=== PATIENT | male | born 1970 | race Two or more races ===

== ENCOUNTER 2019-11-09 21:57 | Emergency (ER) | payer OTHER ==
[~2019-11-09] VITALS: Ht 162.6 cm; Wt 86.2 kg
[2019-11-09 23:20] VITALS: BP 144/101
[2019-11-09 23:30] LABS: Basophils # (auto) 0 10 ^3/uL (0-0.2); Basophils % (auto) 0.6 % (0.0-2.0); Eosinophils # (auto) 0.2 10 ^3/uL (0-0.8); Eosinophils % (auto) 4.8 % (0.0-7.0); Mean Corpuscular Hemoglobin 28.3 pg (28.0-32.0); Mean Corpuscular Hgb Conc. 33.3 g/dL (32.0-36.0); Mean Corpuscular Volume 84.8 fL (80.0-100.0); Monocytes # (auto) 0.8 10 ^3/uL (0-1.3); Monocytes % (auto) 16.6 % (0.0-12.0); Neutrophils # (auto) 2.6 10 ^3/uL (1.6-8.6); Nucleated Red Blood Cells % 0.1 %; Platelet Count (auto) 205 10^3/uL (140-450); Red Blood Cells 5.31 10^6/uL (4.5-5.90); Red Cell Distribution Width 14.6 % (11.8-14.3); White Blood Cell 4.7 10^3/uL (4.4-10.8)
[2019-11-09 23:46] LABS: Alanine Aminotransferase 46 U/L (16-61); Albumin 3.7 g/dL (3.4-5.0); Anion Gap 6 (5-15); Aspartate Aminotransferase 26 U/L (15-37); BUN/Creatinine Ratio 18.4; Blood Urea Nitrogen 16 mg/dL (7-18); Calcium 7.5 mg/dL (8.5-10.1); Carbon Dioxide 22 mmol/L (21-32); Chloride 110 mmol/L (98-107); GFR African American 119 mL/min; GFR Non-African American 99 mL/min; Glucose 100 mg/dL (74-106); Magnesium 2.2 mg/dL (1.6-2.6); Potassium 3.7 mmol/L (3.5-5.1); Sodium 138 mmol/L (136-145)
[2019-11-09 23:51] LABS: Alkaline Phosphatase 66 U/L (45-117); Bilirubin, Total 0.2 mg/dL (0.2-1.0); Total Protein 7.8 g/dL (6.4-8.2)
== END 2019-11-10 01:11 | disposition home or self-care (01) ==
LOC: ER 21:57
DX: U07.1 COVID-19 (principal); B34.9 Viral infection, unspecified
CPT/HCPCS: 36415; 71045; 80053; 82728; 83605; 83735; 84484; 85025; 85379; 87040; 87070; 87804; 87880; 93005; 99285; C9803; U0003

== ENCOUNTER → 2019-11-13 | Emergency (ER) | payer OTHER ==
[~2019-11-13] VITALS: Ht 165.1 cm; Wt 86.2 kg
[~2019-11-13] MED LIST: ACETAMINOPHEN 500 MG TAB PO ONE
[2019-11-14 03:43] LABS: Basophils # (auto) 0 10 ^3/uL (0-0.2); Basophils % (auto) 0.4 % (0.0-2.0); Eosinophils # (auto) 0.1 10 ^3/uL (0-0.8); Eosinophils % (auto) 1.5 % (0.0-7.0); Hematocrit 46.6 % (41.0-53.0); Hemoglobin 16.1 g/dL (13.5-17.5); Lymphocytes % (auto) 14.7 % (10.0-50.0); Mean Corpuscular Hemoglobin 29.2 pg (28.0-32.0); Mean Corpuscular Hgb Conc. 34.6 g/dL (32.0-36.0); Mean Corpuscular Volume 84.6 fL (80.0-100.0); Monocytes # (auto) 0.8 10 ^3/uL (0-1.3); Monocytes % (auto) 11.5 % (0.0-12.0); Neutrophils % (auto) 71.9 % (37.0-80.0); Platelet Count (auto) 192 10^3/uL (140-450); Red Blood Cells 5.51 10^6/uL (4.5-5.90); Red Cell Distribution Width 14.5 % (11.8-14.3); White Blood Cell 6.9 10^3/uL (4.4-10.8)
[2019-11-14 04:04] LABS: Albumin 3.5 g/dL (3.4-5.0); Calcium 8.5 mg/dL (8.5-10.1); Potassium 4.6 mmol/L (3.5-5.1)
[2019-11-14 04:06] LABS: BUN/Creatinine Ratio 13.3
[2019-11-14 04:08] LABS: Bilirubin, Total 0.3 mg/dL (0.2-1.0); Total Protein 8.5 g/dL (6.4-8.2)
[2019-11-14 07:06] VITALS: BP 176/111
== END | disposition home or self-care (01) ==
LOC: ER 22:21
DX: J01.00 Acute maxillary sinusitis, unspecified (principal); Z20.828 Contact with and (suspected) exposure to other viral communicable diseases
CPT/HCPCS: 36415; 80053; 82728; 85025

== ENCOUNTER 2019-11-16 11:38 | Inpatient (IN) | payer OTHER ==
[~2019-11-16] VITALS: Ht 165.1 cm; Wt 98.2 kg
[2019-11-16] MEDS ORDERED: ACETAMINOPHEN 325 MG TAB PO ONE (12:15)
[2019-11-16] MEDS ORDERED: AZITHROMYCIN 500MG/ 250ML 250 ML IV ONE (13:15)
[2019-11-16] MEDS ORDERED: ENOXAPARIN SOD 100 MG/1 ML SYRINGE SC ONE (13:15)
[2019-11-16] MEDS ORDERED: PANTOPRAZOLE 40 MG/10 ML VIAL INJ IV ONE (13:15)
[2019-11-16] MEDS ORDERED: ZINC SULFATE 220mg CAP or TAB PO ONE (13:15)
[2019-11-16] MEDS ORDERED: DexAMETHasone SOD PHOS 4 MG/1ML SDV INJ IV ONE (13:15)
[2019-11-16] MEDS ORDERED: ASCORBIC ACID 500 MG TAB PO ONE (13:15)
[2019-11-16] MEDS ORDERED: SODIUM CHLORIDE 0.9% 1,000 ML IV SCH (14:03)
[2019-11-16] MEDS ORDERED: ONDANSETRON HCL 4 MG/2 ML VIAL IV PRN (14:15)
[2019-11-16] MEDS ORDERED: ALUM & MAG HYDROX-SIMETH LIQ(MAALOX) 30 ML PO PRN (14:15)
[2019-11-16] MEDS ORDERED: ACETAMINOPHEN 500 MG TAB PO PRN (14:15)
[2019-11-16] MEDS ORDERED: NITROGLYCERIN 0.4 MG SL TAB SL PRN (14:15)
[2019-11-16] MEDS ORDERED: LORazepam 0.5 MG TAB PO PRN (14:15)
[2019-11-16] MEDS ORDERED: MORPHINE SULF INJ 2 MG/ML SYRINGE 1ML IV PRN ×2 (14:15)
[2019-11-16] MEDS ORDERED: DOCUSATE SOD 100 MG CAP PO PRN (14:15)
[2019-11-16] MEDS ORDERED: HYDROcodone-ACET 5/325MG TAB PO PRN (14:15)
[2019-11-16] MEDS ORDERED: DexAMETHasone 4 MG TAB PO ONE (14:30)
[2019-11-16] MEDS ORDERED: FUROSEMIDE 20 MG/2 ML VIAL IV ONE (14:30)
[2019-11-16 14:52] LABS: Basophils # (auto) 0 10 ^3/uL (0-0.2); Basophils % (auto) 0.3 % (0.0-2.0); Eosinophils # (auto) 0 10 ^3/uL (0-0.8); Eosinophils % (auto) 0.4 % (0.0-7.0); Hematocrit 44.4 % (41.0-53.0); Hemoglobin 14.9 g/dL (13.5-17.5); Lymphocytes # (auto) 0.9 10 ^3/uL (0.4-5.4); Lymphocytes % (auto) 12.9 % (10.0-50.0); Mean Corpuscular Hemoglobin 28.1 pg (28.0-32.0); Mean Corpuscular Hgb Conc. 33.5 g/dL (32.0-36.0); Mean Corpuscular Volume 83.8 fL (80.0-100.0); Monocytes # (auto) 0.7 10 ^3/uL (0-1.3); Neutrophils # (auto) 5.2 10 ^3/uL (1.6-8.6); Neutrophils % (auto) 76.4 % (37.0-80.0); Nucleated Red Blood Cells % 0.1 %; Platelet Count (auto) 216 10^3/uL (140-450); Red Cell Distribution Width 14.8 % (11.8-14.3); White Blood Cell 6.8 10^3/uL (4.4-10.8)
[2019-11-16 15:04] LABS: Albumin 3.2 g/dL (3.4-5.0); Anion Gap 7 (5-15); Blood Urea Nitrogen 9 mg/dL (7-18); Calcium 7.8 mg/dL (8.5-10.1); Carbon Dioxide 22 mmol/L (21-32); Chloride 104 mmol/L (98-107); Glucose 86 mg/dL (74-106); Potassium 4.3 mmol/L (3.5-5.1); Sodium 133 mmol/L (136-145)
[2019-11-16 15:12] LABS: Alanine Aminotransferase 36 U/L (16-61); Alkaline Phosphatase 68 U/L (45-117); Aspartate Aminotransferase 23 U/L (15-37); BUN/Creatinine Ratio 9.9; Bilirubin, Total 0.5 mg/dL (0.2-1.0); CRP High Sensitivity 5.88 mg/dL (< 0.3); GFR African American 113 mL/min; GFR Non-African American 94 mL/min; Lactate Dehydrogenase 245 U/L (87-241); Total Protein 7.9 g/dL (6.4-8.2)
[2019-11-16 18:10] VITALS: BP 131/83
--- NOTE | 2019-11-16 18:10 | NUR ---
Telemetry admit from ER BERNDEN GONSALES admitted to Telemetry unit after SBAR received. Patient oriented to ACE COBB RN primary RN, unit, room, bed, and unit policies regarding patient care and visiting hours. Patient now on continuous telemetry monitoring, tele box # 20 and telemetry reading on arrival to unit is ST. Patient placed on bedside oxygen, weighed by bedscale and encouraged to call if they need something. All questions and concerns addressed, patient verbalized understanding.
[2019-11-16] MEDS: FUROSEMIDE 20 MG/2 ML VIAL IV SCH (19:07)
--- NOTE | 2019-11-16 19:33 | NUR ---
ENDORSED CARE TO NIGHT RAJIV ESTRADA. PATIENT RESTING IN BED, NO DISTRESS, SOB, OR PAIN NOTED AT THIS TIME.
--- NOTE | 2019-11-16 19:35 | NUR ---
OPENING NOTE Received report from day shift RN. Patient is A&O X's 4 with no s/s of distress and reports no pain and no SOB at this time. Educated patient on POC and to use call light when in need of any assistance. Patient verbalized understanding. Bed is in lowest/locked position with side rails up X's 2 and call light is within reach of patient. Will continue care.
[2019-11-16 20:00] VITALS: BP 126/73
[2019-11-16 21:11] LABS: Cholesterol 131 mg/dL (< 200)
[2019-11-16 21:14] LABS: HDL Cholesterol 27 mg/dL (40-59); LDL Cholesterol 101 mg/dL (< 100); Triglycerides 77 mg/dL (< 150)
[2019-11-16] MEDS: DexAMETHasone 4 MG TAB PO SCH (21:40)
[2019-11-16] MEDS: ENOXAPARIN SOD 100 MG/1 ML SYRINGE SC SCH (21:41)
[2019-11-16] MEDS: DOXYCYCLINE 100 MG TAB/CAP PO SCH (21:41)
[2019-11-16] MEDS: ALBUTEROL SULF HFA 90MCG INH 200DOSE IN SCH (21:52)
--- NOTE | 2019-11-16 23:18 | NUR ---
UA sent to lab.
[2019-11-16 23:21] LABS: Urine WBC None Seen /hpf (0 - 3)
[2019-11-16 23:27] LABS: Urine Bacteria NONE SEEN /hpf (None Seen); Urine Blood Negative /uL (Negative); Urine Mucus FEW (None Seen); Urine Specific Gravity 1.007 (1.001-1.035)
[2019-11-16 23:44] LABS: Alcohol, Urine < 3.0 mg/dL (0-10); Amphetamine Screen, Urine NEGATIVE (NEGATIVE); Barbiturate Scree,Urine NEGATIVE (NEGATIVE); Benzodiazephine Screen, Urine NEGATIVE (NEGATIVE); Cannabinoid Screen, Urine NEGATIVE (NEGATIVE); Cocaine Screen, Urine NEGATIVE (NEGATIVE); Opiate Scree,Urine NEGATIVE (NEGATIVE); Phencyclidine Screen, Urine NEGATIVE (NEGATIVE)
[2019-11-17 03:46] VITALS: BP 126/73
[2019-11-17] MEDS: FUROSEMIDE 20 MG/2 ML VIAL IV SCH (05:03)
[2019-11-17 05:08] VITALS: BP 115/72
[2019-11-17 05:15] LABS: Basophils # (auto) 0 10 ^3/uL (0-0.2); Basophils % (auto) 0.7 % (0.0-2.0); Eosinophils # (auto) 0 10 ^3/uL (0-0.8); Eosinophils % (auto) 0.1 % (0.0-7.0); Hematocrit 44.6 % (41.0-53.0); Hemoglobin 14.8 g/dL (13.5-17.5); Lymphocytes # (auto) 0.7 10 ^3/uL (0.4-5.4); Mean Corpuscular Hemoglobin 27.8 pg (28.0-32.0); Mean Corpuscular Hgb Conc. 33.3 g/dL (32.0-36.0); Mean Corpuscular Volume 83.5 fL (80.0-100.0); Monocytes # (auto) 0.3 10 ^3/uL (0-1.3); Monocytes % (auto) 8.1 % (0.0-12.0); Neutrophils # (auto) 2.5 10 ^3/uL (1.6-8.6); Neutrophils % (auto) 72.1 % (37.0-80.0); Nucleated Red Blood Cells % 0.2 %; Platelet Count (auto) 245 10^3/uL (140-450); Red Blood Cells 5.34 10^6/uL (4.5-5.90); Red Cell Distribution Width 14.7 % (11.8-14.3); White Blood Cell 3.5 10^3/uL (4.4-10.8)
[2019-11-17 05:34] LABS: Albumin 3.1 g/dL (3.4-5.0); BUN/Creatinine Ratio 14.9; Calcium 8.1 mg/dL (8.5-10.1); Magnesium 2.7 mg/dL (1.6-2.6); Potassium 4.1 mmol/L (3.5-5.1)
[2019-11-17 05:36] LABS: INR 1.16 (0.9-1.15); Partial Thromboplastin Time 42.1 sec (23.64-32.05)
[2019-11-17 05:37] LABS: Bilirubin, Total 0.3 mg/dL (0.2-1.0); Phosphorus 3.7 mg/dL (2.5-4.90)
[2019-11-17] MEDS: ALBUTEROL SULF HFA 90MCG INH 200DOSE IN SCH ×3 (06:50→22:02)
--- NOTE | 2019-11-17 07:30 | NUR ---
Opening Shift Note Assumed care of patient, awake and alert. No S/S of distress/SOB or pain. Instructed on POC and to call for assist PRN, will continue to monitor for changes Q1hr and PRN. Fall precautions in place per safety protocol.
[2019-11-17 09:00] VITALS: BP 117/83
[2019-11-17] MEDS: DOXYCYCLINE 100 MG TAB/CAP PO SCH ×2 (10:06→22:49)
[2019-11-17] MEDS: ASCORBIC ACID 1,000 MG TAB PO SCH (10:06)
[2019-11-17] MEDS: DexAMETHasone 4 MG TAB PO SCH (10:06)
[2019-11-17] MEDS: ZINC SULFATE 220mg CAP or TAB PO SCH (10:06)
[2019-11-17] MEDS: CHOLECALCIFEROL (VITD3) 1,000UNIT=25mCg TAB PO SCH (10:07)
[2019-11-17] MEDS: ENOXAPARIN SOD 100 MG/1 ML SYRINGE SC SCH (10:07)
--- NOTE | 2019-11-17 11:49 | NUR ---
Nutrition Assessment/consult Notes Please see attached link for complete assessment Est energy needs ABW 78 [id number] kcal (20-23 kcal/kg BW) Est protein needs: 78-85 g (1.0-1.1/kg ABW) Will continue to monitor and reassess prn. Addendum: 11/17/19 at [address] Amended: Links added.
[2019-11-17 12:38] VITALS: BP 125/81
--- NOTE | 2019-11-17 15:43 | NUR ---
Hospitalist MD Wallace at bedside, aware of patient status including patient positive for MRSA. Per MD, new orders will be placed. Will cont to monitor patient.
[2019-11-17] MEDS ORDERED: cefTRIAXone 1GM/50ML D5W 50 ML IV ONE (15:45)
[2019-11-17] MEDS ORDERED: methylPREDNISolone SOD SUCC 40 MG/ML VL IV ONE (15:45)
[2019-11-17 17:32] VITALS: BP 120/78
--- NOTE | 2019-11-17 19:30 | NUR ---
Opening Shift Note Assumed care of patient, awake and alert x4. Patient denies shortness of breath or pain at this time. Instructed on plan of care and to call for assistance as needed, patient verbalized understanding. Incentive spirometer noted at the bedside. Reinforced education on the purpose, how often, and how to use incentive spirometer, patient verbalized understanding and returned demonstration. Patient able to raise marker to 1000ml. Bed is locked in lowest position, side rails x 2 are up, call light is within reach. Will continue care.
[2019-11-17 21:00] VITALS: BP 128/82
--- NOTE | 2019-11-17 21:24 | NUR ---
RT NOTE PT WAS SEEN BY RT FOR MDI TX. PT TOLERATES WELL VIA SPACER. PT IS ON BEDSIDE POX. CONT ORDERED Addendum: 11/17/19 at 2329 by Wilda Benites RT Amended: Links added.
--- NOTE | 2019-11-17 22:42 | NUR ---
Spoke With Hospitalist RE: Covid-19 Results Notified LISA Henson that patient's covid-19 test result came back positive for covid-19. Patient is on covid-19 protocol. No new orders received at this time.
[2019-11-17] MEDS: methylPREDNISolone SOD SUCC 40 MG/ML VL IV SCH (22:49)
[2019-11-17] MEDS: ENOXAPARIN SOD 40 MG/0.4 ML SYRINGE SC SCH (22:50)
[2019-11-17] MEDS: MUPIROCIN 2% OINT 15gm or 22gm EACHNOSTRI SCH (23:08)
[2019-11-18 05:00] VITALS: BP 116/81
[2019-11-18] MEDS: ALBUTEROL SULF HFA 90MCG INH 200DOSE IN SCH (06:14)
[2019-11-18] MEDS ORDERED: MULT-228 PO (07:55)
[2019-11-18] MEDS ORDERED: ASCO10003 PO (07:55)
[2019-11-18] MEDS ORDERED: HYDR-4188 PO (07:55)
[2019-11-18] MEDS ORDERED: METH4PAK PO (07:55)
[2019-11-18] MEDS ORDERED: CHOL20007 PO (07:55)
[2019-11-18] MEDS ORDERED: ALBUAER3 IN (07:55)
[2019-11-18] MEDS ORDERED: AMOX500T86 PO (07:55)
[2019-11-18] MEDS ORDERED: DEXT1SYP9 PO (07:56)
[2019-11-18 08:09] VITALS: BP 126/74
[2019-11-18] MEDS ORDERED: cefTRIAXone 1GM/50ML D5W 50 ML IV SCH (09:00)
[2019-11-18] MEDS: MUPIROCIN 2% OINT 15gm or 22gm EACHNOSTRI SCH (09:53)
[2019-11-18] MEDS: ASCORBIC ACID 1,000 MG TAB PO SCH (09:54)
[2019-11-18] MEDS: methylPREDNISolone SOD SUCC 40 MG/ML VL IV SCH (09:54)
[2019-11-18] MEDS: DOXYCYCLINE 100 MG TAB/CAP PO SCH (09:54)
[2019-11-18] MEDS: ZINC SULFATE 220mg CAP or TAB PO SCH (09:54)
[2019-11-18] MEDS: CHOLECALCIFEROL (VITD3) 1,000UNIT=25mCg TAB PO SCH (09:55)
[2019-11-18] MEDS: ENOXAPARIN SOD 40 MG/0.4 ML SYRINGE SC SCH (09:55)
[2019-11-18] MEDS ORDERED: FUROSEMIDE 20 MG/2 ML VIAL IV SCH (10:00)
[2019-11-18] MEDS ORDERED: POTASSIUM CHL 10 Meq TABLET PO SCH (10:00)
[2019-11-18 12:55] VITALS: BP 126/76
[2019-11-18 13:00] VITALS: BP 126/76
--- NOTE | 2019-11-18 14:47 | NUR ---
Assessment Patient is a 49- year-old male who is alert and oriented. Prior to admission patient lived home with family and function independently. Per patient he can care for his own ADLs. Per patient he has a walker at home that he does not need now. Per patient he will return to his prior living arrangements post discharge and family will transport him home. Patient PCP is Dr. Ramirez. Advise patient there is a social service consult for home oxygen. Informed patient clinical information will be faxed to [facility]. Advised patient to follow up with his primary doctor. Informed patient he has the right to participate in all discharge planning. Patient verbalized understanding and agreed to discharge plan. Per Linda with [facility] oxygen will be deliver to the front lobby and concentrate oxygen to patient home. Addendum: 11/18/19 at 1449 by RAVEN GANDARA Amended: Links added.
== END 2019-11-18 14:30 | disposition home or self-care (01) | DRG 177 ==
LOC: ER 11:38 → TELE 11:39 → TELE-EAST 18:11
PROVIDERS: ADMIT Hospitalist; ATTEND Internal Medicine
DX: U07.1 COVID-19 (principal); J96.01 Acute respiratory failure with hypoxia; J12.89 Other viral pneumonia; E87.1 Hypo-osmolality and hyponatremia; E44.1 Mild protein-calorie malnutrition; R65.10 Systemic inflammatory response syndrome (SIRS) of non-infectious origin without acute organ dysfunction; E66.01 Morbid (severe) obesity due to excess calories; E78.5 Hyperlipidemia, unspecified; Z22.322 Carrier or suspected carrier of Methicillin resistant Staphylococcus aureus; Z68.35 Body mass index [BMI] 35.0-35.9, adult
CPT/HCPCS: 36415; 71045; 80053; 80061; 80307; 81001; 82728; 83605; 83615; 83735; 84100; 84443; 84484; 85025; 85379; 85610; 85730; 86141; 87040; 87081; 87086; 93005; 94640; C9113; G0378; J0696; J1100

== ENCOUNTER 2022-09-11 02:41 | Emergency (ER) | payer OTHER ==
[~2022-09-11] VITALS: Ht 162.6 cm; Wt 96.6 kg
[~2022-09-11 02:41] MED LIST changes: -ACETAMINOPHEN 500 MG TAB PO ONE; +ALBUAER3 IN; +AMOX500T86 PO; +ASCO10003 PO; +CHOL20007 PO; +DEXT1SYP9 PO; +HYDR-4188 PO; +METH4PAK PO; +MULT-228 PO
[2022-09-11] MEDS ORDERED: SODIUM CHLORIDE 0.9% 1,000 ML IV ONE (03:30)
[2022-09-11] MEDS ORDERED: HYDROmorphone HCL 2 MG/ML VL/or syr IV ONE (03:30)
[2022-09-11] MEDS ORDERED: IOHEXOL 350 MG/ML 100ML IJ ONE (03:36)
[2022-09-11 04:17] LABS: Basophils # (auto) 0 10 ^3/uL (0-0.2); Monocytes # (auto) 1.5 10 ^3/uL (0-1.3)
[2022-09-11 04:19] LABS: Basophils % (auto) 0.3 % (0.0-2.0); Eosinophils # (auto) 0.2 10 ^3/uL (0-0.8); Hematocrit 32.6 % (41.0-53.0); Lymphocytes # (auto) 0.8 10 ^3/uL (0.4-5.4); Lymphocytes % (auto) 5.1 % (10.0-50.0); Mean Corpuscular Hemoglobin 27.1 pg (28.0-32.0); Mean Corpuscular Hgb Conc. 33.7 g/dL (32.0-36.0); Mean Corpuscular Volume 80.4 fL (80.0-100.0); Neutrophils # (auto) 12.8 10 ^3/uL (1.6-8.6); Neutrophils % (auto) 83.6 % (37.0-80.0); Red Blood Cells 4.05 10^6/uL (4.5-5.90); Red Cell Distribution Width 15.7 % (11.8-14.3); White Blood Cell 15.3 10^3/uL (4.4-10.8)
[2022-09-11 04:31] LABS: Albumin 2.8 g/dL (3.4-5.0); BUN/Creatinine Ratio 15.2 (10.0-20.0); Calcium 8.4 mg/dL (8.5-10.1)
[2022-09-11 04:34] LABS: Bilirubin, Total 1.5 mg/dL (0.2-1.0); Total Protein 7.4 g/dL (6.4-8.2)
[2022-09-11] MEDS ORDERED: VANCOMYCIN 1GM/250ML 250 ML IV ONE (06:00)
[2022-09-11] MEDS ORDERED: PIPERACILLIN-TAZOB 3.375GM 100 ML IV ONE (07:15)
[2022-09-11] MEDS ORDERED: HYDROmorphone HCL 2 MG/ML VL/or syr IM ONE (07:45)
[2022-09-11] MEDS ORDERED: MORPHINE SULFATE INJ 2 MG/ml SYRG IV PRN (09:15)
[2022-09-11] MEDS ORDERED: ACETAMINOPHEN 325 MG TAB PO PRN (09:15)
[2022-09-11] MEDS ORDERED: CEFEPIME 1GM/ 50ML 50 ML IV ONE (09:15)
[2022-09-11] MEDS ORDERED: HYDROcodone-ACET 5/325MG TAB PO PRN (09:15)
[2022-09-11] MEDS ORDERED: SODIUM CHLORIDE 0.9% 1,000 ML IV SCH (09:15)
[2022-09-11] MEDS ORDERED: VANCOMYCIN PER PHARMACY 0 MG IV SCH (09:15)
[2022-09-11 09:55] LABS: Cholesterol 133 mg/dL (< 200); HDL Cholesterol 44 mg/dL (40-59); LDL Cholesterol 84 mg/dL (< 100); Triglycerides 78 mg/dL (< 150)
[2022-09-11] MEDS ORDERED: ENOXAPARIN SOD 40 MG/0.4 ML SYRINGE SC SCH (10:00)
[2022-09-11] MEDS ORDERED: ASCORBIC ACID 1,000 MG TAB PO SCH (10:00)
[2022-09-11] MEDS ORDERED: MULTIPLE VITAMIN TAB PO SCH (10:00)
[2022-09-11] MEDS ORDERED: PANTOPRAZOLE 40 MG/10 ML VIAL INJ IV ONE (10:00)
[2022-09-11] MEDS ORDERED: CHOLECALCIFEROL (VITD3) 2,000 UNIT CAP/TAB PO SCH (10:00)
[2022-09-11] MEDS ORDERED: fentaNYL CITRATE 100 MCG/2 ML VL IM ONE (16:15)
[2022-09-11 16:41] VITALS: BP 110/80
[2022-09-11] MEDS ORDERED: CEFEPIME 1GM/ 50ML 50 ML IV SCH (17:00)
[2022-09-11] MEDS ORDERED: VANCOMYCIN 1GM/250ML 250 ML IV SCH (18:00)
[2022-09-12] MEDS ORDERED: PANTOPRAZOLE 40 MG/10 ML VIAL INJ IV SCH (10:00)
== END 2022-09-11 17:00 | disposition left against medical advice (07) ==
LOC: ER 02:41 → OVERFLOW 09:17 → UNDOADMIN 09:17 → ER 17:00
DX: D72.829 Elevated white blood cell count, unspecified (principal); L03.311 Cellulitis of abdominal wall; Z79.899 Other long term (current) drug therapy; Y83.9 Surgical procedure, unspecified as the cause of abnormal reaction of the patient, or of later complication, without mention of misadventure at the time of the procedure
CPT/HCPCS: 36415; 71045; 74177; 80053; 80061; 83036; 83605; 83690; 84443; 84484; 85025; 87040; 96365; 96366; 96368; 96372; 99285; J1170; J2543; J3010; J3370; J7030; Q9967